=== PATIENT | female | born 1955 | race Caucasian/White ===

== ENCOUNTER 2019-11-21 20:41 | Emergency (ER) | payer BC ==
--- OUTSIDE RECORDS SUMMARY | 2019-11-21 20:54 | XMS REPORT | Continuity of Care Document ---
:1955 External Reference #:[id number] Author Name Naun Durand M.D. Address [address] [place] [address] Care Team Providers Name Role Phone Nikki Shannon DO - Internal Care Team Information Pulmonology Technician [phone] Medicine Problems Active Problems Provider Date Type 2 diabetes mellitus Onset: Essential hypertension Onset: Hypothyroidism Onset: Hypercholesterolemia Onset: Presence of intraocular lens Naun Durand M.D. Onset: 09/29/2019 Social History Type Date Description Comments Sex Unknown ETOH Use Rarely consumes alcohol Tobacco Use Start: Unknown Patient has never smoked Recreational Drug Use Denies Drug Use Smoking Status Reviewed: 09/29/19 Patient has never smoked Allergies, Adverse Reactions, Alerts Active Allergies Reaction Severity Comments Date Amoxicillin 09/29/2019 Canagliflozin 09/29/2019 Medications Active Medications SIG Qnty Indications Ordering Provider Date Levothyroxine Sodium Unknown 137mcg Tablets Januvia Unknown 100mg Tablets Lisinopril-Hydrochlorot Unknown hiazide 20-12.5mg Tablets Fenofibrate Unknown 160mg Tablets Metformin HCL Unknown 500mg Tablets Atorvastatin Calcium Unknown 10mg Tablets Fish Oil 1 by mouth every Unknown 1000mg Capsules day Vitamin D3 Unknown 125mcg (5000 Ut) Capsules Multi Vitamin Unknown Tablets Calcium 600 Unknown 600mg Tablets Artificial Tears as needed Naun Durand, 0.2-0.2-1% M.DAilyn Solution Immunizations Description No Information Available Vital Signs Description No Information Available Results Description No Information Available Procedures Description No Information Available Medical Devices Description No Information Available Encounters Description No Information Available Assessments Date Code Description Provider 09/29/2019 E11.9 Type 2 diabetes mellitus without Naun Durand M.D. complications 09/29/2019 Z96.1 Presence of intraocular lens Naun Durand M.D. Plan of Treatment 09/29/2019 - Naun Durand M.D.E11.9 Type 2 diabetes mellitus without complicationsComments:Smoking can increase the risk of developing or worsening any eye related disease, as well as affect your overall health. If you are a smoker, we strongly recommend that you quit.If you are not a smoker, we strongly recommend that you do not start. You have diabetes. I do not detect any changes in both of your retinas from diabetes at this time. Proper control of your diabetes is important for the health of your eyes. Changes in your eyes from diabetes can happen without symptoms, so it is important that you have your eyes examined.Follow up:1 Year Follow Up DFE/IOP You can expect to have your eyes dilated at your next visit. If Dr. Durand orders any additional testing, it may require extra time. We recommend that you bring sunglasses,as dilation drops often make you light sensitive until they wear off. We always recommend you bring someone to drive you home if you are uncomfortable driving with your eyes dilated. If you have any questions before your next visit, feel free to call our office at .Z96.1 Presence of intraocular lensComments:The artificial lens implants in both eyes appear to be stable at this time. Functional Status Description No Information Available Mental Status Description No Information Available Referrals Description No Information Available
[2019-11-21 21:09] VITALS: BP 145/74
--- NOTE | 2019-11-21 21:10 | UC ---
Complaint Female HPI - HPI Summary HPI Summary: pain and burning with urination for 1 day no fever or back pain no vomiting or nausea - History Of Current Complaint Stated Complaint: URINARY COMPLAINT Time Seen by Provider: 11/21/19 20:47 Hx Obtained From: Patient ?: No Onset/Duration: Sudden Onset, Lasting Days - 1 Timing: Constant Severity Initially: Mild Severity Currently: Mild Character: Burning Aggravating Factor(s): Urination Alleviating Factor(s): Nothing Associated Signs And Symptoms: Positive: Negative - Allergies/Home Medications Allergies/Adverse Reactions: Allergies Allergy/AdvReac Type Severity Reaction Status Date / Time amoxicillin Allergy Hives Verified 11/21/19 20:59 Home Medications: Home Medications Atorvastatin* [Lipitor 10 MG*] 10 mg PO QPM 11/21/19 [History Confirmed 11/21/19 ] Fenofibric Acid (Choline) [Fenofibric Acid] 135 mg PO QAM 11/21/19 [History Confirmed 11/21/19] Levothyroxine TAB* [Synthroid 137 MCG TAB*] 137 mcg PO DAILY 11/21/19 [History Confirmed 11/21/19] Lisinopril/Hydrochlorothiazide [Lisinopril-Hctz 10-12.5 mg Tab] 1 each PO QAM [History Confirmed 11/21/19] Sitagliptin Phosphate [Januvia] 100 mg PO QAM 11/21/19 [History Confirmed ] Sulfamethox/Trimethoprim DS* [Bactrim DS 800/160 TAB*] 1 tab PO BID #9 tab 11/20 [Rx] metFORMIN* [Glucophage 500 MG TAB *] 1,000 mg PO 0800,1700 11/21/19 [History Confirmed 11/21/19] PMH/Surg Hx/FS Hx/Imm Hx Previously Healthy: Yes - Family History Known Family History: Positive: None - Social History Occupation: Retired Lives: With Family Substance Use Type: None Smoking Status (MU): Never Smoked Tobacco Have You Smoked in the Last Year: No Review of Systems All Other Systems Reviewed And Are Negative: Yes Constitutional: Positive: Negative Skin: Positive: Negative Eyes: Positive: Negative ENT: Positive: Negative Respiratory: Positive: Negative Cardiovascular: Positive: Negative Gastrointestinal: Positive: Negative Genitourinary: Positive: Dysuria, Frequency Motor: Positive: Negative Neurovascular: Positive: Negative Musculoskeletal: Positive: Negative Neurological/Mental Status: Positive: Negative Psychological: Positive: Negative Is Patient Immunocompromised?: No Physical Exam Triage Information Reviewed: Yes Appearance: Well-Appearing, No Pain Distress, Well-Nourished Vital Signs Reviewed: Yes Eye Exam: Normal Eyes: Positive: Conjunctiva Clear ENT Exam: Normal ENT: Positive: Normal ENT inspection, Hearing grossly normal, TMs normal. Negative: Nasal congestion, Trismus, Muffled voice, Hoarse voice Dental Exam: Normal Neck exam: Normal Neck: Positive: Supple, Nontender Respiratory Exam: Normal Respiratory: Positive: Chest non-tender, Lungs clear, Normal breath sounds, No respiratory distress, No accessory muscle use Cardiovascular Exam: Normal Cardiovascular: Positive: RRR, No Murmur, Pulses Normal, Brisk Capillary Refill Abdominal Exam: Normal Abdomen Description: Positive: Nontender, No Organomegaly, Soft. Negative: CVA Tenderness (R), CVA Tenderness (L) Bowel Sounds: Positive: Present Musculoskeletal Exam: Normal Musculoskeletal: Positive: Strength Intact, ROM Intact, No Edema Neurological Exam: Normal Neurological: Positive: Alert, Muscle Tone Normal Psychological Exam: Normal Skin Exam: Normal Complaint Female Dx - Course Course Of Treatment: increase fluids culture urina bactrim bid for [address] Shannon - Differential Dx/Diagnosis Provider Diagnosis: UTI (urinary tract infection), Hypertension Discharge ED - Sign-Out/Discharge Documenting (check all that apply): Patient Departure All imaging exams completed and their final reports reviewed: No Studies - Discharge Plan Condition: Stable Disposition: HOME Prescriptions: Sulfamethox/Trimethoprim DS* [Bactrim DS 800/160 TAB*] 1 tab PO BID #9 tab Patient Education Materials: Urinary Tract Infection in Women (ED), Hypertension (ED) Referrals: Nikki Shannon DO [Primary Care Provider] - 1 Week - Billing Disposition and Condition Condition: STABLE Disposition: Home
[2019-11-21] MEDS ORDERED: Sulfamethox/Trimethoprim DS 800/160* TAB PO ONE (21:25)
--- NOTE | 2019-11-23 15:45 | UC ---
- Progress Note Progress Note: Urine culture with no growth - if feeling better, complete anbx If no change - should have recheck with PCP or Urology Course/Dx - Diagnoses Provider Diagnoses: UTI (urinary tract infection), Hypertension Discharge ED - Sign-Out/Discharge Documenting (check all that apply): Post-Discharge Follow Up All imaging exams completed and their final reports reviewed: No Studies - Discharge Plan Condition: Stable Disposition: HOME Prescriptions: Sulfamethox/Trimethoprim DS* [Bactrim DS 800/160 TAB*] 1 tab PO BID #9 tab Patient Education Materials: Urinary Tract Infection in Women (ED), Hypertension (ED) Referrals: Nikki Shannon DO [Primary Care Provider] - 1 Week - Billing Disposition and Condition Condition: STABLE Disposition: Home
== END 2019-11-21 21:38 | disposition home or self-care (01) ==
LOC: UCEAST 20:41
DX: N39.0 Urinary tract infection, site not specified (principal); I10 Essential (primary) hypertension; Z79.899 Other long term (current) drug therapy; Z88.0 Allergy status to penicillin
CPT/HCPCS: 81003; 87086; 99212; A9270-GY; G0463

== ENCOUNTER 2023-09-16 02:43 | Observation (INO) ==
[2023-09-16] MEDS ORDERED: Lactated Ringers 1000 ml BAG 1,000 ML IV ONE (02:48)
[2023-09-16 03:30] LABS: ABS Basophils 0.1 10^3/uL (0.0-0.1); ABS Eosinophils 0.1 10^3/uL (0.0-0.5); ABS Lymphocytes 3.2 10^3/uL (1.0-4.8); ABS Monocytes 0.9 10^3/uL (0.0-0.9); ABS Neutrophils 8.8 10^3/uL (1.5-7.6); Eosinophil % 1.1 %; Hemoglobin 10.9 g/dL (11.5-14.3); Lymphocyte % 24.3 %; Mean Corpuscular Hemoglobin 30.4 pg (27-33); Mean Corpuscular Hgb Conc 34.1 g/dL (31-36); Mean Platelet Volume 8.7 fL (7.5-11.2); Platelet Count 201 10^3/uL (150-450); Red Cell Distribution Width 14.4 % (12-17)
[2023-09-16 03:33] LABS: INR 1.2 (0.83-1.13)
[2023-09-16] MEDS ORDERED: Ondansetron 4 mg VIAL 2 MG/ML 2 ml VIAL IV ONE (03:53)
[2023-09-16 03:57] LABS: Urine Appearance Cloudy; Urine Bilirubin Negative (Negative); Urine Blood 1+ (Negative); Urine Color Yellow; Urine Glucose Negative (Negative); Urine Ketones Negative (Negative); Urine Nitrite Negative (Negative); Urine Protein Negative (Negative); Urine Specific Gravity 1.021 (1.002-1.030); Urine Urobilinogen Negative (Negative)
[2023-09-16 04:00] LABS: Urine Bacteria 1+ (Absent); Urine Red Blood Cell 3+(>10/hpf) (Absent); Urine Squamous Epithelial Cell Present (Absent); Urine White Blood Cell 3+(>20/hpf) (Absent)
[2023-09-16 04:27] LABS: ALT 17 U/L (7-52); Albumin 3.8 g/dL (3.2-5.2); Albumin/Globulin Ratio 1.5 (1-3); Alkaline Phosphatase 25 U/L (35-149); Anion Gap 7 mmol/L (2-16); Blood Urea Nitrogen 24 mg/dL (6-24); CO2 Carbon Dioxide 22 mmol/L (22-32); Calcium 9.7 mg/dL (8.6-10.3); Chloride 105 mmol/L (101-111); Creatinine, Serum 0.95 mg/dL (0.51-0.95); Globulin 2.6 g/dL (2-4); Glucose 177 mg/dL (70-100); Sodium 134 mmol/L (135-145); Total Bilirubin 0.4 mg/dL (0.2-1.0); Total Protein 6.4 g/dL (6.4-8.9); eGFR CKD-EPI 65.7 (>60)
[2023-09-16] MEDS ORDERED: HYDROmorphone 1 MG/1 ML SYRINGE IV ONE ×2 (04:49→07:33)
[2023-09-16 05:11] LABS: Potassium Redraw 4.1 mmol/L (3.5-5.0)
[2023-09-16] MEDS ORDERED: cefTRIAXone 2 gm/50 mL D5W 2 GM/50 ML BAG IV ONE (05:27)
[2023-09-16 05:46] LABS: C Reactive Protein 2.75 mg/L (<8.01)
[2023-09-16] MEDS ORDERED: HYDROmorphone 0.5 MG/0.5 ML SYRINGE IV SLOW PU PRN (09:55)
[2023-09-16] MEDS ORDERED: HYDROmorphone 1 MG/1 ML SYRINGE IV PRN ×2 (09:55→16:56)
[2023-09-16] MEDS ORDERED: Iohexol 180 (CONTRAST) 10 ML SDV IV ONE ×3 (15:09→16:23)
[2023-09-16] MEDS ORDERED: fentaNYL 100 mcg/2 ml 50 MCG/ML VIAL ONE (15:10)
[2023-09-16] MEDS ORDERED: Propofol 10 MG/ML 20 ML BTL ONE (15:10)
[2023-09-16] MEDS ORDERED: Lidocaine 2% PF 5 ML VIAL ONE (15:10)
[2023-09-16] MEDS ORDERED: Midazolam 2 mg/2 ml VIAL 1 mg/ml 2 ml VIAL (2 mg) ONE (15:10)
[2023-09-16] MEDS ORDERED: Ondansetron 4 mg VIAL 2 MG/ML 2 ml VIAL ONE (16:05)
[2023-09-16] MEDS ORDERED: Phenylephrine 40 mcg/mL 10mL (400mcg) SYRINGE ONE (16:08)
[2023-09-16] MEDS ORDERED: Naloxone 0.4 mg VIAL 0.4 mg/ml 1 ml VIAL IV PRN (16:56)
[2023-09-16] MEDS ORDERED: Ondansetron 4 mg VIAL 2 MG/ML 2 ml VIAL IV PRN (16:56)
[2023-09-16] MEDS ORDERED: fentaNYL 100 mcg/2 ml 50 MCG/ML VIAL IV PRN (16:56)
[2023-09-16] MEDS ORDERED: Gentamicin ADULT 140 MG in NS 0.9% 100 ml BAG 100 ML IVPB ONE (17:00)
[2023-09-16] MEDS: Lactated Ringers 1000 ml BAG 1,000 ML IV SCH (18:11)
[2023-09-16] MEDS: CMCS:SitaGLIPtin 25mg TAB (NF) 25 MG TAB PO SCH (21:38)
[2023-09-17] MEDS: Lactated Ringers 1000 ml BAG 1,000 ML IV SCH (01:00)
[2023-09-17 06:00] LABS: ABS Lymphocytes 1.6 10^3/uL (1.0-4.8); ABS Monocytes 1.1 10^3/uL (0.0-0.9); ABS Neutrophils 10.9 10^3/uL (1.5-7.6); Eosinophil % 0.1 %; Hematocrit 33.3 % (35-45); Hemoglobin 11.1 g/dL (11.5-14.3); Lymphocyte % 11.5 %; Mean Corpuscular Hemoglobin 29.9 pg (27-33); Mean Corpuscular Hgb Conc 33.2 g/dL (31-36); Mean Platelet Volume 8.6 fL (7.5-11.2); Platelet Count 209 10^3/uL (150-450); Red Cell Distribution Width 14.6 % (12-17); White Blood Count 13.5 10^3/uL (3.8-11.8)
[2023-09-17] MEDS ORDERED: cefTRIAXone 2 gm/50 mL D5W 2 GM/50 ML BAG IV SCH (06:00)
[2023-09-17 06:19] LABS: Calcium 9.5 mg/dL (8.6-10.3); Creatinine, Serum 1.09 mg/dL (0.51-0.95); Magnesium 1.6 mg/dL (1.9-2.7); eGFR CKD-EPI 55.7 (>60)
[2023-09-17 09:01] VITALS: BP 122/73
[2023-09-17] MEDS: CMCS:SitaGLIPtin 25mg TAB (NF) 25 MG TAB PO SCH (09:04)
== END 2023-09-17 10:55 | disposition home or self-care (01) ==
LOC: EDHOLD 02:43 → ED 02:43 → SUATTDRO 09:57 → MED 12:41
PROVIDERS: ADMIT Internal Medicine; ATTEND Student in an Organized Health Care Education/Training Program